=== PATIENT | male | born 1945 | race Caucasian/White ===

== ENCOUNTER 2017-10-22 11:23 | Outpatient (CLI) | payer MEDICARE, OTHER ==
[~2017-10-22] VITALS: Ht 203.2 cm; Wt 130.2 kg
--- NOTE | ~2017-10-22 | HEMODYNAMI ---
PATIENT:PHU SERRANO MEDICAL RECORD: [id number] : 45 LOCATION:DDESTINEY ADMISSION DATE: 10/22/17 Generatedon:10/22/201714:48 Patient name: PHU SERRANO Patient #: [id number] SSN: : Date of study: 10/22/2017 Page: Of Hemodynamic Procedure Report Patient Data Patient Demographics Procedure consent was obtained First Name: PHU Gender: Male Last Name: ZACH : 1945 Middle Initial: W Age: 72 year(s) Patient #: [id number] Race: Unknown Additional ID: [id number] Contact details [address]: [address] [place] [address] ROAD State: [place] City: [place] Zip code: [address] Past Medical History Allergies Allergen Reaction Date Comments Reported Penicillins 10/22/2017 Sulfa drugs 10/22/2017 Admission Admission Data Admission Date: 10/22/2017 Admission Time: 11:23 Procedure Procedure Types Cath Procedure Diagnostic Procedure LHC LHC w/Coronaries Miscellaneous Procedures Moderate Sedation up to 45 minutes Peripheral Cath Diagnostic Procedure Cath Peripheral Sqiwu-Ttbnayw-Igh-Off Procedure Description Procedure Date Procedure Date: 10/22/2017 Procedure Start Time: 14:05 Procedure End Time: 14:47 Procedure Staff Name Function Tushar Yang MD Performing Physician Tammy Julien RT Monitor Karen Arceo RT Scrub Torres Guy RN Nurse Procedure Data Cath Procedure Fluoroscopy Diagnostic fluoroscopy Total fluoroscopy Time: 9.3 time: 9.3 min min Diagnostic fluoroscopy Total fluoroscopy dose: dose: 1497 mGy 1497 mGy Contrast Material Contrast Material Type Amount (ml) Isovue 300 195 Entry Location Entry Primary Successful Side Size Upsize Upsize Entry Closure Succes sful Closure Location (Fr) 1 (Fr) 2 (Fr) Remarks Device Remarks Femoral Right 5 Fr 6 Fr 6 Fr Exoseal artery Long Short Estimated blood loss: 10 ml Diagnostic catheters Device Type Used For End Catheter Placement MULTIPACK JL 4.0 5Fr Left Coronary catheter Angiography DIAGNOSTIC JL 5 5Fr Left Coronary catheter ([id number]) Angiography DIAGNOSTIC JL 5 5Fr Left Coronary catheter ([id number]) Angiography DIAGNOSTIC JL 6 5Fr Left Coronary catheter ([id number]) Angiography MULTIPACK 3DRC 5Fr Right Coronary catheter Angiography MULTIPACK Pigtail 5 Fr LV Angiography catheter MULTIPACK Pigtail 5 Fr Abdominal catheter aortogram with runoff Procedure Complications No complications Procedure Medications Medication Administration Route Dosage 0.9% NaCl I.V. 100 ml/hr Oxygen NC 2 l/min Heparin Flush Bag added to field 2 bags (1000units/500ml NS) Lidocaine 2% added to field 20 Benadryl I.V. 50 mg Versed I.V. 1 mg Fentanyl I.V. 50 mcg Fentanyl I.V. 25 mcg Versed I.V. 0.5 mg Versed I.V. 0.5 mg Fentanyl I.V. 25 mcg Versed I.V. 1 mg Versed I.V. 1 mg Hemodynamics Rest Heart Rate: 80 (bpm) Pressure Samples Time Site Value (mmHg) Purpose Heart Use Rate(bpm) 14:22 LV 111/14,20 Snapshot 71 14:22 AO 108/69(86) Pullback 80 14:22 LV 113/20,21 Pullback 80 Gradients Valve Time Site 1 Site 2 Mean SEP/DFP Peak To Heart Use (mmHg) (sec/min) Peak Rate (mmHg) (bpm) Aortic 14:22 LV AO 5 10 5 80 113/20,21 108/69(86) Calculations Valve P-P Mean Valve Index Valve Source Name Gradient Area Flow (cm2) Aortic 5 5 5 5 Snapshots Pre Cath Intra NCS Post Cath Vital Signs Time Heart Resp SPO2 etCO2 NIBP (mmHg) Rhythm Pain Sedation Rate (ipm) (%) (mmHg) Status Level (bpm) 14:00:51 84 16 97 28.4 153/101(123) NSR 0 (11) 10(A) , No pain 14:05:28 86 18 95 20.2 135/93(116) NSR 0 (11) 10(A) , No pain 14:10:06 84 19 96 29.1 135/86(108) NSR 0 (11) 10(A) , No pain 14:14:45 79 20 96 32.9 118/81(98) NSR 0 (11) 10(A) , No pain 14:19:17 75 16 98 35.1 133/86(106) NSR 0 (11) 9(A) , No pain 14:23:56 81 15 97 32.1 119/79(96) NSR 0 (11) 9(A) , No pain 14:28:32 86 17 99 32.1 129/72(111) NSR 0 (11) 10(A) , No pain 14:33:09 70 21 99 14.9 126/78(110) NSR 0 (11) 10(A) , No pain 14:37:43 72 19 99 19.4 119/81(97) NSR 0 (11) 10(A) , No pain 14:42:18 75 18 99 26.1 117/74(94) NSR 0 (11) 10(A) , No pain 14:46:52 76 15 99 23.9 116/76(99) NSR 0 (11) 10(A) , No pain Medications Time Medication Route Dose Verified Delivered Reason Notes Effe ctiveness by by 13:56:19 0.9% NaCl I.V. 100 Torres Torres Per ml/hr Lorigan Lorigan physician RN RN 13:56:31 Oxygen NC 2 Torres Torres Per l/min Lorigan Lorigan physician RN RN 13:56:44 Heparin Flush added 2 Torres Torres used for Bag to bags Lorigan Lorigan procedure (1000units/500ml field RN RN NS) 13:56:56 Lidocaine 2% added 20ml Torres Torres for local to vial Lorigan Lorigan anesthetic field RN RN 13:57:07 Benadryl I.V. 50 mg Torres Torres for Lorigan Lorigan sedation RN RN 14:06:05 Versed I.V. 1 mg Torres Torres for Lorigan Lorigan sedation RN RN 14:06:19 Fentanyl I.V. 50 Torres Torres for mcg Lorigan Lorigan sedation RN RN 14:07:08 Fentanyl I.V. 25 Torres Torres for mcg Lorigan Lorigan sedation RN RN 14:07:17 Versed I.V. 0.5 Torres Torres for mg Lorigan Lorigan sedation RN RN 14:14:18 Versed I.V. 0.5 Torres Torres for mg Lorigan Lorigan sedation RN RN 14:14:27 Fentanyl I.V. 25 Torres Torres for mcg Lorigan Lorigan sedation RN RN 14:29:39 Versed I.V. 1 mg Torres Torres for Lorigan Yamilexigan sedation RN RN 14:41:48 Versed I.V. 1 mg Torres Torres for Lorigan Lorigan sedation RN [place] [employer] Log Time Note 13:42:20 Torres Guy RN sent for patient. Start room use. 13:42:29 Time tracking: Regular hours 13:42:34 Plan of Care:Hemodynamics will remain stable., Cardiac rhythm will remain stable., Comfort level will be maintained., Respiratory function will remain adequate., Patient/ family verbilizes understanding of procedure., Procedure tolerated without complication., Recovers from procedure without complications.. 13:43:52 Patient received from Pre/Post Procedure Room to CCL 1 Alert and oriented. Tansferred to table in Supine position. 13:43:53 Warm blankets applied, and ebenezer hugger turned on for patient comfort. 13:43:54 Correct patient and procedure confirmed by team. 13:43:55 Signed procedure consent form obtained from patient. 13:43:56 ECG and BP/O2 sat monitors applied to patient. 13:43:57 Full Disclosure recording started 13:56:19 0.9% NaCl 100 ml/hr I.V. was administered by Torres Guy RN; Per physician; 13:56:31 Oxygen 2 l/min NC was administered by Torres Guy RN; Per physician; 13:56:44 Heparin Flush Bag (1000units/500ml NS) 2 bags added to field was administered by Torres Guy RN; used for procedure; 13:56:56 Lidocaine 2% 20ml vial added to field was administered by Torres Guy RN; for local anesthetic; 13:57:07 Benadryl 50 mg I.V. was administered by Torres Guy RN; for sedation; 13:59:58 Vital chart was started 14:00:00 Rhythm: atrial fibrillation 14:00:21 H&P Date Dictated: 10/14/2017 Within 30 days and on chart., H&P Addendum completed by physician on day of procedure. (MUST COMPLETE FOR ALL OUTPATIENTS). 14:00:22 Pre-procedure instructions explained to patient. 14:00:22 Pre-op teaching completed and patient verbalized understanding. 14:00:24 Family in waiting room. 14:00:26 Patient NPO since Midnight. 14:00:35 Patient allergic to Penicillins 14:00:39 Patient allergic to Sulfa drugs 14:01:46 Is the patient allergic to Iodine/contrast media? No. 14:01:48 Is patient on blood thinner?No 14:01:54 Patient diabetic? No. 14:01:57 Previous problem with sedation/anesthesia? No ? 14:01:58 Snore? Yes 14:01:59 Sleep apnea? No 14:02:00 Deviated septum? No 14:02:01 Opens mouth fully? Yes 14:02:01 Sticks out tongue? Yes 14:02:03 Airway obstruction? No ? 14:02:05 Dentures? No ? 14:02:07 Pre procedure: right dorsailis pedis pulse 2+ Normal; easily identifiable; not easily obliterated 14:02:10 Pre procedure: left dorsailis pedis pulse 2+ Normal; easily identifiable; not easily obliterated 14:02:13 Patient pain scale 0/10 ?. 14:02:17 IV patent on arrival in left hand with 0.9% NaCl at [facility]. 14:02:21 Lab results completed and on chart. 14:02:24 Bilateral groins area was prepped with chlora-prep and draped in sterile fashion 14:02:25 Alarms reviewed by R. N. 14:02:25 Sharps counted by scrub and verified by R.N. 14:02:26 Final Timeout: patient, procedure, and site verified with staff and physician. All members of the team are in agreement. 14:02:29 Left groin site verified by team. 14:02:32 Physical assessment completed. ASA score P 2 - A patient with mild systemic disease as per Tushar Yang MD. 14:02:35 Sedation plan: IV Moderate Sedation Medication:Versed, Fentanyl 14:04:05 Baseline sample Acquired. 14:04:09 Zero performed for pressure channel P1 14:04:28 Use device set Femoral Dx 14:04:29 Bag Decanter () opened to sterile field. 14:04:30 ACIST Syringe (43600) opened to sterile field. 14:04:30 Medline Cath Pack ([id number]) opened to sterile field. 14:04:31 SHEATH 5FR [place] (ZVP856) opened to sterile field. 14:04:32 DIAGNOSTIC WIRE .035 260cm J wire (953304) opened to sterile field. 14:04:33 ACIST Hand Control (45524) opened to sterile field. 14:04:34 ACIST Manifold (89725) opened to sterile field. 14:04:35 DIAGNOSTIC Multipack 5Fr catheter set ([id number]) opened to sterile field. 14:04:36 Tegaderm 4 x 4 (1626W) opened to sterile field. 14:04:37 PERCUTANEOUS ENTRY 19GA needle opened to sterile field. 14:05:49 Procedure started. 14:05:54 Local anesthetic to right femoral artery with Lidocaine 2% by Tushar Yang MD.INITIAL ACCESS ONLY 14:06:05 Versed 1 mg I.V. was administered by Torres Guy RN; for sedation; 14:06:06 A 5 Fr sheath was inserted into the Right Femoral artery 14:06:19 Fentanyl 50 mcg I.V. was administered by Torres Guy RN; for sedation; 14:07:08 Fentanyl 25 mcg I.V. was administered by Torres Guy RN; for sedation; 14:07:17 Versed 0.5 mg I.V. was administered by Torres Guy RN; for sedation; 14:08:32 A MULTIPACK JL 4.0 5Fr catheter was advanced over the wire and used for Left Coronary Angiography. removed, unable to cannulate 14:11:07 A DIAGNOSTIC JL 5 5Fr catheter ([id number]) was advanced over the wire and used for Left Coronary Angiography. removed, unable to cannulate 14:12:34 SHEATH 6FR [place] (RSR01) opened to sterile field. 14:13:49 Sheath upsized to a 6 Fr Long. 14:14:18 Versed 0.5 mg I.V. was administered by Torres Guy RN; for sedation; 14:14:27 Fentanyl 25 mcg I.V. was administered by Torres Guy RN; for sedation; 14:15:05 A DIAGNOSTIC JL 5 5Fr catheter ([id number]) was advanced over the wire and used for Left Coronary Angiography. removed, unable to cannulate 14:17:15 A DIAGNOSTIC JL 6 5Fr catheter ([id number]) was advanced over the wire and used for Left Coronary Angiography. 14:20:26 Catheter removed. 14::37 A MULTIPACK 3DRC 5Fr catheter was advanced over the wire and used for Right Coronary Angiography. 14:22:12 Catheter removed. 14:: A MULTIPACK Pigtail 5 Fr catheter was advanced over the wire and used for LV Angiography. 14::37 LV gram done using MAR 14::39 LV hemodynamics recorded. 14::45 Injector settings: Ml/sec: 10, Volume: 20, 14::55 EF : 45 % 14:: Catheter removed. 14::54 Abd Aortogram performed through sheath 14::55 Sheath upsized to a 6 Fr Short. 14:28:09 SHEATH 6FR [place] (NHH490) opened to sterile field. 14::54 A MULTIPACK Pigtail 5 Fr catheter was advanced over the wire and used for Abdominal aortogram with runoff. 14:29:39 Versed 1 mg I.V. was administered by Torres Guy RN; for sedation; 14:40:11 Catheter removed. 14::26 Sheath removed intact; hemostasis achieved with Exoseal to the Right Femoral artery. 14:40:30 Procedure ended.(Physican Out) 14:40:50 Fluoroscopy time 09.30 minutes. 14:40:54 Fluoroscopy dose: 1497 mGy 14:40:54 Flurop Dose total: 1497 14:40:58 Contrast amount:Isovue 300 195ml. 14:41:45 Sharps counted by scrub and verified by R.N. 14:41:48 Versed 1 mg I.V. was administered by Torres Guy RN; for sedation; 14:41:48 Insertion/operative site no bleeding no hematoma. 14:41:52 Post-op/insertion site Right Femoral artery dressed using a 4 x 4 and Tegaderm. 14:41:59 Post right femoral artery:stable, clean and dry 14:42:01 Post Procedure Pulses reassessed and unchanged 14:42:16 Post-procedure physical assessment completed. ASA score P 2 - A patient with mild systemic disease as per Tushar Yang MD. 14:42:18 Post procedure rhythm: unchanged. 14:42:22 Estimated blood loss: 10 ml 14:42:24 Post procedure instruction explained to patient.Patient verbalizes understanding. 14:42:25 Patient needs reinforcement of post procedure teaching. 14:42:36 EXOSEAL 6Fr (EX600) opened to sterile field. 14:42:45 Procedure Complication : No complications 14:42:47 See physician's report for complete and final results. 14:43:15 Procedure type changed to Cath procedure, Diagnostic procedure, LHC, LHC w/Coronaries, Miscellaneous Procedures, Moderate Sedation up to 45 minutes, Peripheral Cath Diagnostic Procedure, Cath Peripheral, Rawqs-Uplryyr-Jon-Off 14:43:51 Terumo ANGLE 260cm glide wire opened to sterile field. 14:44:26 Procedure and supply charges have been captured, reviewed, submitted and are correct. 14:47:49 Vital chart was stopped 14:47:51 Report given to Pre/Post Procedure Room. 14:47:54 Patient transfered to Pre/Post Procedure Room with Stretcher. 14:47:58 Procedure ended. 14:47:58 Full Disclosure recording stopped 14:48:01 End room use (Document Last) Device Usage Item Name Manufacture Quantity Catalog Hospital Part Current Minimal Lot# / Number Charge Number Stock Stock Serial# Code Bag Decanter Microtek 1 [id number] 53038 500042 5 () Medical Inc. ACIST Acist 1 65268 867121 637969 873877 20 Syringe Medical (95004) Systems Inc Medline Cath Cardinal 1 [id number] 050938 61051 074399 5 Pack Health ([id number]) SHEATH 5FR Terumo 1 EQF568 005692 242628 830237 40 [place] (XSF308) DIAGNOSTIC [place] 1 789893 209128 432926 569192 30 WIRE .035 260cm J wire (600926) ACIST Hand Acist 1 09144 313065 862324 222220 5 Control Medical (07407) Systems Inc ACIST Acist 1 89980 027059 308464 681380 5 Manifold Medical (41151) Systems Inc DIAGNOSTIC Cardinal 1 WD9871 307848 59087 208153 30 Multipack Health 5Fr catheter set (ZT0387) Tegaderm 4 x 3M 1 1626W 468671 357684 275317 5 4 (1626W) PERCUTANEOUS Cook Medical 1 J31007 143549 289820 5 ENTRY 19GA needle MULTIPACK JL Cardinal 1 349139 5 4.0 5Fr Health catheter DIAGNOSTIC Cardinal 1 [id number] 299373 636717 014586 5 JL 5 5Fr Health catheter (027352Q) SHEATH 6FR Terumo 1 RSR01 936102 24556 850047 5 Destination (RSR01) DIAGNOSTIC Cardinal 1 [id number] 636117 925542 778677 5 JL 6 5Fr Health catheter (455883C) MULTIPACK Cardinal 1 198813 5 3DRC 5Fr Health catheter MULTIPACK Cardinal 1 718351 5 Pigtail 5 Fr Health catheter SHEATH 6FR Terumo 1 DKW867 841241 811709 802322 40 [place] (OUJ146) EXOSEAL 6Fr Cardinal 1 EX600 991884 650303 115524 10 (EX600) Health Terumo ANGLE Terumo 1 XF6575 629915 749456 737683 5 260cm glide wire Signature Audit Halbur Stage Time Signature Unsigned Intra-Procedure 10/22/2017 Tammy 2:48:16 PM Counts RT(R) Signatures Monitor : Tammy Signature : Counts RT Date : Time : [id number] [place] [address]
[2017-10-22] MEDS ORDERED: K-TAB10 MEQ PO (12:31)
[2017-10-22] MEDS ORDERED: CORDARONE200 MG PO (12:31)
[2017-10-22] MEDS ORDERED: FUROSEMIDE40 MG PO (12:31)
[2017-10-22] MEDS ORDERED: LOPID600 MG PO (12:33)
[2017-10-22] MEDS ORDERED: LEVOTHYROXINE75 MCG PO (12:33)
[2017-10-22] MEDS ORDERED: ZYLOPRIM100 MG PO (12:33)
[2017-10-22] MEDS ORDERED: BYSTOLIC5 MG PO (12:34)
[2017-10-22] MEDS ORDERED: BAYER CHEWABLE81 MG PO (12:34)
[2017-10-22 12:52] LABS: BASOPHILS 0.1 % (0-2); EOSINOPHILS 1.1 % (0-7); HEMATOCRIT 41.6 % (42.0-54.0); HEMOGLOBIN 14.2 g/dL (13.5-17.5); IMMATURE GRANULOCYTES 0.3 % (0-5); LYMPHOCYTES 21.7 % (15-50); MCH 33.2 pg (26.0-34.0); MCHC 34.1 g/dL (31.0-37.0); MCV 97.2 fL (80.0-100.0); MEAN PLATELET VOLUME 8.7 fL (7.4-10.4); MONOCYTES 9.6 % (2-11); NEUTROPHILS 67.2 % (40-80); PLATELET COUNT 261 10x3/uL (130-400); RBC 4.28 10x6/uL (4.20-6.10); RDW 13.1 % (11.5-14.5)
[2017-10-22 13:06] LABS: ANION GAP 10.8 mmol/L (8-16); CALCIUM 9.1 mg/dL (8.5-10.1); CREATININE - SERUM 1.3 mg/dL (0.6-1.3); POTASSIUM - SERUM 3.8 mmol/L (3.5-5.1)
--- NOTE | 2017-10-22 15:15 | NUR ---
2L NC, NO RESP DISTRESS. RIGHT GROIN 6F EXOSEAL CDI, NO BLEEDING OR HEMATOMA NOTED. NO C/O PAIN OR NAUSEA. VSS. FAMILY AT BEDSIDE, CALL LIGHT WITHIN REACH.
--- NOTE | 2017-10-22 15:45 | NUR ---
RIGHT GROIN 6F EXOSEAL CDI, NO BLEEDING OR HEMATOMA NOTED. 2L NC, NO RESP DISTRESS. NO C/O PAIN OR NAUSEA. DRINK GIVEN. VSS. WILL CONTINUE TO MONITOR.
--- NOTE | 2017-10-22 16:00 | NUR ---
RESTING QUIETLY WITH EYES CLOSED. VSS. NO C/O AT THIS TIME. RIGHT GROIN 6F EXOSEAL CDI, NO BLEEDING OR HEMATOMA NOTED. AT BEDSIDE, CALL LIGHT WITHIN REACH.
--- NOTE | 2017-10-22 16:30 | NUR ---
HOB ELEVATED 30 DEGREES. RIGHT GROIN 6F EXOSEAL CDI, NO BLEEDING NOTED.
--- NOTE | 2017-10-22 16:45 | NUR ---
LEFT FA PIV D/C'D WITH CATHETER INTACT, BAND AID TO SITE. UP TO BEDSIDE TO GET DRESSED.
--- NOTE | 2017-10-22 16:50 | NUR ---
DISCHARGE INSTRUCTIONS GIVEN, VERBALIZED UNDERSTANDING.
--- NOTE | 2017-10-22 17:00 | NUR ---
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 LEFT FACILITY WITH FAMILY AND ALL PERSONAL BELONGINGS.
--- NOTE | 2017-10-23 13:26 | OP ---
PATIENT NAME: PHU SERRANO MEDICAL RECORD: [id number] :45 LOCATION:D.CAT ADMISSION DATE: SURGEON: PELON STEPHENSON MD DATE OF OPERATION: 10/22/2017 PROCEDURE: Left heart catheterization, selective coronary angiography, right femoral approach. The case was marked by marked tortuosity and difficulty engaging the coronaries, had to use long sheath to engage the coronaries. FINDINGS: Left ventriculography in 30-degree MAR view shows global hypokinesis, marked reduced EF 40% to 45%. CORONARY ANATOMY: LEFT MAIN: Left main is free of disease. LAD: Has luminal irregularities, but no flow obstructing disease. CIRCUMFLEX: Totally occluded distally and fills late via bridging and left to left collaterals. RIGHT CORONARY ARTERY: The right coronary artery is a dominant artery, a large vessel by far and is free of disease. Catheters pulled to the level of the aorta, runoff was performed, again marked tortuous vessels. Left SFA shows fairly discrete stenosis of about 90%. Right iliacs are markedly tortuous and this shows distal stenosis of several areas 90%. Given the marked tortuosity, probably not amenable to around the horn and would have to do antegrade stick. This will be scheduled with the right left first at a later date. TRANSINT:[id number] Voice Confirmation ID: [id number] DOCUMENT ID: [id number] PELON STEPHENSON MD at 1326 CC: [id number] DICTATION DATE: 10/22/17 1448 ASSISTANT HEAD CASHIER: 10/22/17 1816 DEP CLI 10/22/17 [address] [place] [address]
== END 2017-10-22 17:00 | disposition home or self-care (01) ==
LOC: D.CATH 11:23
PROVIDERS: Internal Medicine Interventional Cardiology
DX: I70.219 Atherosclerosis of native arteries of extremities with intermittent claudication, unspecified extremity (principal); I25.10 Atherosclerotic heart disease of native coronary artery without angina pectoris; I10 Essential (primary) hypertension; I49.9 Cardiac arrhythmia, unspecified; I48.91 Unspecified atrial fibrillation; Z01.812 Encounter for preprocedural laboratory examination

== ENCOUNTER 2017-11-06 11:05 | Outpatient (CLI) | payer MEDICARE, OTHER ==
[~2017-11-06] VITALS: Ht 203.2 cm; Wt 130.5 kg
--- NOTE | ~2017-11-06 | HP ---
PATIENT: PHU SERRANO MEDICAL RECORD: [id number] ACCOUNT: [id number] LOCATION:ANTHONY : 45 ADMISSION DATE: 11/06/17 HISTORY AND PHYSICAL EXAMINATION HISTORY OF PRESENT ILLNESS: A 72-year-old gentleman with a known history of coronary artery disease as well as a history of atrial fibrillation and peripheral vascular disease. He is being brought to the angiography for intervention of the right SFA. PAST MEDICAL HISTORY: 1. History of hypertension. 2. Hyperlipidemia. 3. Obstructive pulmonary disease. PHYSICAL EXAMINATION: GENERAL: Pleasant gentleman, appears stated age. HEENT: Normocephalic and atraumatic. NECK: No bruits. HEART: Regular. LUNGS: Lung segal are clear. ABDOMEN: Soft, nontender. EXTREMITIES: Pulses are decreased. There is no edema. IMPRESSION: Known history of disease in the SFA. PLAN: Intervention today. TRANSINT:[id number] Voice Confirmation ID: [id number] DOCUMENT ID: [id number] PELON STEPHENSON MD at 1210 CC: [id number] DICTATION DATE: 11/06/17 1440 SHIPYARD PAINTER: 11/06/17 1501 DEP CLI 11/06/17 [facility] [address] [place] [address]
--- NOTE | ~2017-11-06 | OP ---
PATIENT NAME: PHU SERRANO MEDICAL RECORD: [id number] :45 LOCATION:D.CAT ADMISSION DATE: SURGEON: PELON STEPHENSON MD DATE OF OPERATION: 11/06/2017 PROCEDURE: PTCA stent right SFA. DESCRIPTION OF PROCEDURE: The right iliac was cannulated in anterograde fashion. We were able to traverse the long 80% to 90% stenosed area with a Glidewire itself. Next, pre-deployment used was a 6.0 x 100 mm balloon used pre-deployment. Next the balloon withdrawn, showed multiple small areas of dissection and significant residual. Next, a 100 x 7 SMART stent was then deployed in usual fashion. Finally, post-deployment, we used a 7 x 100 mm balloon up to 6 atmospheres. This showed excellent resolution of the long diffuse 80% to 90% stenosis and no significant residual. FemoStop was placed due to inability to place ExoSeal. Angiomax was used during this case. Plavix was loaded in the lab. TRANSINT:[id number] Voice Confirmation ID: [id number] DOCUMENT ID: [id number] PELON STEPHENSON MD at 1210 CC: [id number] DICTATION DATE: 11/06/17 1445 MIXER WET POUR: 11/06/17 1516 [facility] CLI 11/06/17 [facility] [address] [place] [address]
--- NOTE | ~2017-11-06 | HEMODYNAMI ---
PATIENT:PHU SERRANO MEDICAL RECORD: [id number] : 45 LOCATION:[facility] ADMISSION DATE: 11/06/17 Generatedon:11/06/201714:51 Patient name: PHU SERRANO Patient #: [id number] SSN: : Date of study: 11/06/2017 Page: Of Hemodynamic Procedure Report Patient Data Patient Demographics Procedure consent was obtained First Name: PHU Gender: Male Last Name: ZACH : 1945 Middle Initial: W Age: 72 year(s) Patient #: [id number] Race: Additional ID: [id number] Contact details [address]: [address] [place] [address] ROAD State: [place] City: [place] Zip code: [address] Past Medical History Allergies Allergen Reaction Date Comments Reported Penicillins 10/22/2017 Sulfa drugs 10/22/2017 Other allergy 11/06/2017 Penicillin, Sulfa Admission Admission Data Admission Date: 11/06/2017 Admission Time: 11:05 Procedure Procedure Types Cath Procedure Miscellaneous Procedures Moderate Sedation up to 45 minutes Peripheral vascular Intervention Stent Stent-Fem/Popw/plasty Procedure Description Procedure Date Procedure Date: 11/06/2017 Procedure Start Time: 13:59 Procedure End Time: 14:47 Procedure Staff Name Function Tushar Yang MD Performing Physician Maryann Fallon RT Monitor Karen Arceo RT Scrub Jeanne Lal RN Nurse Tatyana García RN Front Desk Monitor Procedure Data Cath Procedure Entry Location Entry Primary Successful Side Size Upsize Upsize Entry Closure Succes sful Closure Location (Fr) 1 (Fr) 2 (Fr) Remarks Device Remarks Femoral Right 6 Fr Exoseal artery Short Estimated blood loss: 5 ml Procedure Complications No complications Procedure Medications Medication Administration Route Dosage 0.9% NaCl I.V. 100 ml/hr Oxygen NC 2 l/min Lidocaine 2% added to field 20 Heparin Flush Bag added to field 2 bags (1000units/500ml NS) Fentanyl I.V. 100 mcg Versed I.V. 2 mg Versed I.V. 1 mg Fentanyl I.V. 50 mcg Versed I.V. 1 mg Fentanyl I.V. 50 mcg Angiomax (bolus) I.V. 19.5 ml Angiomax Drip I.V. drip 45.9 ml/hr (250mg/50ml NS) (Standard) Versed I.V. 2 mg Fentanyl I.V. 100 mcg Versed I.V. 1 mg Versed I.V. 1 mg Plavix 600 mg Hemodynamics Rest Heart Rate: 94 (bpm) Snapshots Pre Cath Intra NCS Post Cath Vital Signs Time Heart Resp SPO2 NIBP (mmHg) Rhythm Pain Sedation Rate (ipm) (%) Status Level (bpm) 13:54:18 95 16 94 142/86(115) NSR 0 (11) 10(A) , No pain 13:59:33 91 17 98 143/103(114) NSR 0 (11) 10(A) , No pain 14:03:43 95 18 96 104/79(91) NSR 0 (11) 10(A) , No pain 14:07:47 81 19 98 115/78(91) NSR 0 (11) 9(A) , No pain 14:11:53 80 16 96 115/85(96) NSR 0 (11) 9(A) , No pain 14:16:03 73 16 96 119/70(98) NSR 0 (11) 10(A) , No pain 14:20:09 76 17 100 130/90(109) NSR 0 (11) 10(A) , No pain 14:24:23 79 16 99 121/76(97) NSR 0 (11) 10(A) , No pain 14:28:28 77 16 94 107/80(90) NSR 0 (11) 9(A) , No pain 14:32:32 97 15 99 123/77(101) NSR 0 (11) 10(A) , No pain 14:36:30 70 18 96 115/84(101) NSR 0 (11) 10(A) , No pain 14:40:39 89 18 133/74(90) NSR 0 (11) 10(A) , No pain 14:44:52 101 12 137/85(110) NSR 0 (11) 10(A) , No pain Medications Time Medication Route Dose Verified Delivered Reason Notes Effectiveness by by 13:33:35 0.9% NaCl I.V. 100ml/hr Tushar Byrnefany used for [facility] Lal RN procedure 13:33:49 Oxygen NC 2 l/min Tushar Byrnefany Per [facility] Lal RN physician 13:34:07 Lidocaine 2% added 20ml vial Tushar Finley used for to [facility] procedure field MD ROSALES 13:34:18 Heparin Flush added 2 bags Tushar Finley used for Bag to [facility] procedure (1000units/500ml field MD ROSALES NS) 13:56:50 Fentanyl I.V. 100 mcg Tushar Jeanne for sedation [facility] Lal RN, MD 13:57:00 Versed I.V. 2 mg Tushar Jeanne for sedation [facility] Lal RN, MD 13:59:08 Versed I.V. 1 mg Tushar Jeanne for sedation [facility] RN, MD 13:59:15 Fentanyl I.V. 50 mcg Tushar Jeanne for sedation [facility] RN, MD 14:01:50 Versed I.V. 1 mg Tushar Jeanne for sedation [facility] RN, MD 14:01:57 Fentanyl I.V. 50 mcg Tushar Jeanne for sedation [facility] RN, MD 14:18:04 Angiomax (bolus) I.V. 19.5ml Tushar Jeanne for [facility] Lal RN antiplatelet MD therapy 14:18:26 Angiomax Drip I.V. 45.9ml/hr Tushar Jeanne for (250mg/50ml NS) drip [facility] Lal RN antiplatelet (Standard) MD therapy 14:19:39 Versed I.V. 2 mg Tushar Jeanne for sedation [facility] Lal RN, MD 14:30:59 Fentanyl I.V. 100 mcg Tushar Jeanne for sedation [facility] Lal RN, MD 14:32:36 Versed I.V. 1 mg Tushar Jeanne for sedation [facility] Lal RN, MD 14:33:45 Versed I.V. 1 mg Tushar Jeanne for sedation [facility] Lal RN, MD 14:38:34 Plavix 600 mg Tushar Jeanne for [facility] Lal RN antiplatelet MD therapy Procedure Log Time Note 13:16:42 Informed consent obtained and on chart 13:16:46 Diagnostic Cath Status : Elective 13:21:45 Tatyana García RN sent for patient. Start room use. 13:30:28 Time tracking: Regular hours 13:30:31 Plan of Care:Hemodynamics will remain stable., Cardiac rhythm will remain stable., Comfort level will be maintained., Respiratory function will remain adequate., Patient/ family verbilizes understanding of procedure., Procedure tolerated without complication., Recovers from procedure without complications.. 13:33:35 0.9% NaCl 100ml/hr I.V. was administered by Jeanne Lal RN; used for procedure; 13:33:49 Oxygen 2 l/min NC was administered by Jeanne Lal RN; Per physician; 13:34:04 Patient received from Pre/Post Procedure Room to CCL 2 Alert and oriented. Tansferred to table in Supine position. 13:34:05 Warm blankets applied, and ebenezer hugger turned on for patient comfort. 13:34:06 Correct patient and procedure confirmed by team. 13:34:07 Lidocaine 2% 20ml vial added to field was administered by Tushar Yang MD; used for procedure; 13:34:07 ECG and BP/O2 sat monitors applied to patient. 13:34:18 Heparin Flush Bag (1000units/500ml NS) 2 bags added to field was administered by Tushar Yang MD; used for procedure; 13:53:15 Vital chart was started 13:53:17 Baseline sample Acquired. 13:53:20 Rhythm: atrial fibrillation 13:53:22 Full Disclosure recording started 13:53:26 H&P Date Dictated: 11/06/2017 New H&P dictated by physician.. 13:53:27 Pre-procedure instructions explained to patient. 13:53:28 Pre-op teaching completed and patient verbalized understanding. 13:53:29 Family in waiting room. 13:53:30 Patient NPO since Midnight. 13:53:50 Patient allergic to Other allergyPenicillin, Sulfa 13:53:56 Is the patient allergic to Iodine/contrast media? No. 13:53:57 Was the patient premedicated? No 13:53:59 Is patient on blood thinner?Yes 13:54:24 Patient on zarelto, has not taken for 2 weeks prior 13:54:30 Patient diabetic? No. 13:54:50 Snore? Yes 13:54:51 Sleep apnea? No 13:54:52 Deviated septum? No 13:54:53 Opens mouth fully? Yes 13:54:54 Sticks out tongue? Yes 13:54:55 Airway obstruction? No ? 13:55:04 Dentures? No ? 13:55:11 Pre procedure: right dorsailis pedis pulse Doppler 13:55:14 Pre procedure: left dorsailis pedis pulse Doppler 13:55:27 Patient pain scale 0/10 ?. 13:55:31 IV patent on arrival in left forearm with 0.9% NaCl at [facility]. 13:55:50 Lab results completed and on chart. 13:55:54 Right groin area was prepped with chlora-prep and draped in sterile fashion 13:55:55 Alarms reviewed by R. N. 13:55:56 Sharps counted by scrub and verified by R.N. 13:55:59 Physician arrived 13:55:59 --------ALL STOP TIME OUT------ 13:56:01 Final Timeout: patient, procedure, and site verified with staff and physician. All members of the team are in agreement. 13:56:03 Right groin site verified by team. 13:56:05 Physical assessment completed. ASA score P 2 - A patient with mild systemic disease as per Tushar Yang MD. 13:56:08 Sedation plan: IV Moderate Sedation Medication:Versed, Fentanyl 13:56:16 Procedure started. 13:56:50 Fentanyl 100 mcg I.V. was administered by Jeanne Lal RN; for sedation; 13:56:54 Use device set Femoral Dx 13:56:55 ACIST Syringe (85595) opened to sterile field. 13:56:56 Bag Decanter () opened to sterile field. 13:56:57 Medline Cath Pack ([id number]) opened to sterile field. 13:57:00 Versed 2 mg I.V. was administered by Jeanne Lal RN; for sedation; 13:57:00 DIAGNOSTIC WIRE .035 260cm J wire ([id number]) opened to sterile field. 13:57:03 ACIST Hand Control (47915) opened to sterile field. 13:57:03 ACIST Manifold (38908) opened to sterile field. 13:57:10 Tegaderm 4 x 4 (1626W) opened to sterile field. 13:57:18 SHEATH 6FR Hamel (GTV461) opened to sterile field. 13:59:00 Local anesthetic to right femoral artery with Lidocaine 2% by Tushar Yang MD.INITIAL ACCESS ONLY 13:59:08 Versed 1 mg I.V. was administered by Jeanne Lal RN; for sedation; 13:59:15 Fentanyl 50 mcg I.V. was administered by Jeanne Lal RN; for sedation; 14:01:50 Versed 1 mg I.V. was administered by Jeanne Lal RN; for sedation; 14:01:57 Fentanyl 50 mcg I.V. was administered by Jeanne Lal RN; for sedation; 14:03:35 A 6 Fr Short sheath was inserted into the Right Femoral artery 14:07:37 Right leg runoff performed. 14:08:30 GLIDE WIRE ANGLE 260cm (OL0583) opened to sterile field. 14:09:21 glide wire advanced. 14:10:24 Wire advanced across lesion. 14:14:28 The SABER 6.0 X 150 X 150 balloon ([id number]) was advanced and then removed because it was opened but not used 14:18:04 Angiomax (bolus) 19.5ml I.V. was administered by Jeanne Lal RN; for antiplatelet therapy; 14:18:26 Angiomax Drip (250mg/50ml NS) (Standard) 45.9ml/hr I.V. drip was administered by Jeanne Lal RN; for antiplatelet therapy; 14:18:49 Inflation number: 1 A 6 x 10 x 80powerflex was prepped and advanced across the Mid Superficial Femoral, Right, then inflated to 12 KIERRA for 0:30 (min:sec). 14:19:39 Versed 2 mg I.V. was administered by Jeanne Lal RN; for sedation; 14:23:03 Balloon removed over the wire. 14:27:22 SMART 7 X 100 X 120 stent ([id number]) was deployed across Mid Superficial Femoral, Right . 14:27:42 Stent catheter was removed intact over wire. 14:30:59 Fentanyl 100 mcg I.V. was administered by Jeanne Lal RN; for sedation; 14:32:36 Versed 1 mg I.V. was administered by Jeanne Lal RN; for sedation; 14:32:54 Inflation number: 2 A POWERFLEX PRO 7.0 x 100 x 135cm balloon ([id number]) was prepped and advanced across the Mid Superficial Femoral, Right, then inflated to 8 KIERRA for 0:30 (min:sec). 14:33:45 Versed 1 mg I.V. was administered by Jeanne Lal RN; for sedation; 14:34:00 Balloon removed over the wire. 14:34:09 Wire removed. 14:34:10 Guide catheter removed. 14:34:18 EXOSEAL 6Fr (EX600) opened to sterile field. 14:36:11 Sheath removed intact; hemostasis achieved with Exoseal to the Right Femoral artery. 14:36:14 Procedure ended.(Physican Out) 14:38:34 Plavix 600 mg was administered by Jeanne Lal RN; for antiplatelet therapy; 14:45:17 Femstop placed over the right femoral artery at 175 mmHg. Hemostasis achieved. 14:45:26 Post-op/insertion site Right Femoral artery dressed using a 4 x 4 and Tegaderm. 14:45:30 Post right femoral artery:stable 14:45:47 Post Procedure Pulses reassessed and unchanged 14:45:49 Post procedure rhythm: unchanged. 14:45:52 Estimated blood loss: 5 ml 14:45:53 Post procedure instruction explained to patient.Patient verbalizes understanding. 14:45:53 Patient needs reinforcement of post procedure teaching. 14:46:45 Procedure type changed to Cath procedure, Miscellaneous Procedures, Moderate Sedation up to 45 minutes, Peripheral vascular Intervention, Stent, Stent-Fem/Popw/plasty 14:46:46 Procedure and supply charges have been captured, reviewed, submitted and are correct. 14:46:51 Procedure Complication : No complications 14:46:57 Vital chart was stopped 14:46:58 See physician's report for complete and final results. 14:47:04 Report given to Pre/Post Procedure Room. 14:47:06 Patient transfered to Pre/Post Procedure Room with Stretcher. 14:47:08 Procedure ended. 14:47:08 Full Disclosure recording stopped 14:47:15 ACC-PCI Only Patient was given prescriptions, or instructed by Tushar Yang MD to start/continue the following medications upon discharge: Plavix 14:47:17 End room use (Document Last) Intervention Summary Intervention Notes Time ActionType Lesion and Equipment Action# Pressure Duration Attributes Used 14:14:28 Discard SABER 6.0 X Balloon 150 X 150 balloon ([id number]) 14:18:49 Inflate Mid 6 x 10 x 1 12 00:30 balloon Superficial 80powerflex Femoral, Right 14:27:22 Deploy self Mid SMART 7 X 1 expanding Superficial 100 X 120 stent Femoral, stent Right ([id number]) 14:32:54 Inflate Mid POWERFLEX 2 8 00:30 balloon Superficial PRO 7.0 x Femoral, 100 x 135cm Right balloon ([id number]) Device Usage Item Name Manufacture Quantity Catalog Hospital Part Current Minimal L ot# / Number Charge Number Stock Stock Serial# Code ACIST Acist 1 [id number] 983456 962527 360790 20 Syringe Medical (31323) Systems Inc Bag Microtek 1 2001S 866659 96501 194182 5 Decanter [employer] () Medline Cardinal 1 [id number] 128876 32584 339804 5 Cath Pack Health ([id number]) DIAGNOSTIC [facility] 1 923352 496448 368463 076300 30 WIRE .035 260cm J wire (358854) ACIST Hand Acist 1 81010 267843 552722 347217 5 Control Medical (27646) Systems Inc ACIST Acist 1 26832 818023 457419 818383 5 Manifold Medical (79784) Systems Inc Tegaderm 4 3M 1 1626W 416507 925324 348075 5 x 4 (1626W) SHEATH 6FR Terumo 1 DOY017 362311 940275 039360 40 Hamel (ABX164) GLIDE WIRE Terumo 1 VV1849 123646 847349 244924 5 ANGLE 260cm (FK5368) SABER 6.0 X Cardinal 1 [id number] 844294 891472 5 150 X 150 Health balloon ([id number]) 6 x 10 x Unknown 1 0 0 80powerflex SMART 7 X Cardinal 1 [id number] 827847 570471 0 1 [id number] 100 X 120 Health stent ([id number]) POWERFLEX Cardinal 1 [id number] 604062 468833 711499 5 PRO 7.0 x Health 100 x 135cm balloon ([id number]) EXOSEAL 6Fr Cardinal 1 EX600 988350 503877 726152 10 (EX600) Health Signature Audit [place] Stage Time Signature Unsigned Intra-Procedure 11/06/2017 Maryann Fallon 2:51:01 PM RT(R) Signatures Monitor : Maryann Fallon RT Signature : Date : Time : [facility] [address] [place] [address]
[~2017-11-06 11:05] MED LIST: BAYER CHEWABLE81 MG PO; BYSTOLIC5 MG PO; CORDARONE200 MG PO; FUROSEMIDE40 MG PO; K-TAB10 MEQ PO; LEVOTHYROXINE75 MCG PO; LOPID600 MG PO; ZYLOPRIM100 MG PO
[2017-11-06 11:31] VITALS: BP 113/65; Ht 203.2 cm; Wt 130.5 kg
[2017-11-06 11:38] LABS: BASOPHILS 0.3 % (0-2); EOSINOPHILS 3.3 % (0-7); HEMATOCRIT 41.1 % (42.0-54.0); IMMATURE GRANULOCYTES 0.4 % (0-5); MCH 33.1 pg (26.0-34.0); MCHC 34.1 g/dL (31.0-37.0); MCV 97.2 fL (80.0-100.0); MEAN PLATELET VOLUME 8.8 fL (7.4-10.4); MONOCYTES 9.3 % (2-11); NEUTROPHILS 59.7 % (40-80); PLATELET COUNT 210 10x3/uL (130-400); RBC 4.23 10x6/uL (4.20-6.10); RDW 13.5 % (11.5-14.5); WBC 7.4 10x3/uL (4.8-10.8)
[2017-11-06 12:02] LABS: ANION GAP 14.1 mmol/L (8-16); CALCIUM 8.8 mg/dL (8.5-10.1); CARBON DIOXIDE 27.7 mmol/L (21.0-32.0); CREATININE - SERUM 1.4 mg/dL (0.6-1.3); POTASSIUM - SERUM 3.8 mmol/L (3.5-5.1)
[2017-11-06] MEDS ORDERED: PLAVIX75 MG PO (14:59)
== END 2017-11-06 18:55 | disposition home or self-care (01) ==
LOC: D.CATH 11:05
PROVIDERS: Internal Medicine Interventional Cardiology
DX: I25.10 Atherosclerotic heart disease of native coronary artery without angina pectoris (principal); I48.91 Unspecified atrial fibrillation; I70.219 Atherosclerosis of native arteries of extremities with intermittent claudication, unspecified extremity; I10 Essential (primary) hypertension; E78.5 Hyperlipidemia, unspecified; J44.9 Chronic obstructive pulmonary disease, unspecified; Z01.812 Encounter for preprocedural laboratory examination

== ENCOUNTER → 2018-09-09 18:26 | Outpatient (CLI) | payer MEDICARE ==
[2017-11-06 11:31] VITALS: BMI 31.5
[~2018-09-09 18:26] MED LIST changes: +PLAVIX75 MG PO
== END | disposition home or self-care (01) ==
LOC: D.LABREF 18:26
DX: R31.9 Hematuria, unspecified (principal)

== ENCOUNTER 2019-04-06 11:16 | Outpatient (CLI) | payer MEDICARE | END 2019-04-06 14:35 | disposition home or self-care (01) | LOC: D.CATH 11:16 | DX: I48.91 Unspecified atrial fibrillation (principal) ==

== ENCOUNTER 2020-06-04 23:39 | Inpatient (IN) | payer OTHER ==
[~2020-06-04] VITALS: Ht 203.2 cm; Wt 145.5 kg
[~2020-06-04 23:39] MED LIST changes: +ELIQUIS2.5 MG PO
[2020-06-05] VITALS (7 sets, daily range): BP systolic 91–152; BP diastolic 45–71; Ht 203.2 cm; Wt 145.5 kg
--- NOTE | 2020-06-05 | NUR ---
PT GIVEN WATER TO DRINK. PT STATES THAT HE FEELS MUCH BETTER.
[2020-06-05 00:21] LABS: BASOPHILS 0.1 % (0-2); EOSINOPHILS 0.1 % (0-7); HEMATOCRIT 45.3 % (42.0-54.0); HEMOGLOBIN 15.1 g/dL (13.5-17.5); IMMATURE GRANULOCYTES 0.7 % (0-5); LYMPHOCYTES 6.5 % (15-50); MCH 32.3 pg (26.0-34.0); MCHC 33.3 g/dL (31.0-37.0); MONOCYTES 7.7 % (2-11); NEUTROPHILS 84.9 % (40-80); PLATELET COUNT 149 10x3/uL (130-400); RBC 4.67 10x6/uL (4.20-6.10); RDW 13.7 % (11.5-14.5); WBC 11.1 10x3/uL (4.8-10.8)
[2020-06-05 00:21] LABS: BILIRUBIN NEGATIVE (NEGATIVE); GLUCOSE NEGATIVE (NEGATIVE); KETONE NEGATIVE (NEGATIVE); NITRITE NEGATIVE (NEGATIVE); UROBILINOGEN NORMAL (NORMAL)
[2020-06-05 00:22] LABS: CALC OSMOLALITY 263 mosm/kg (275-300); CALCIUM 9.7 mg/dL (8.5-10.1); CARBON DIOXIDE 27.4 mmol/L (21.0-32.0); CHLORIDE - SERUM 94 mmol/L (98-107); CREATININE - SERUM 1.5 mg/dL (0.6-1.3); GLUCOSE 111 mg/dL (74-106); POTASSIUM - SERUM 3.5 mmol/L (3.5-5.1); SODIUM 131 mmol/L (136-145); UREA NITROGEN 13 mg/dL (7-18); eGFR NON AFRICAN AMERICAN 48 mL/min (90-120)
[2020-06-05 00:23] LABS: APTT 31.4 SECONDS (22.8-39.4); INR 1.09 (0.85-1.17)
[2020-06-05 00:48] LABS: ALBUMIN 3.6 g/dL (3.4-5.0); ALKALINE PHOSPHATASE 162 U/L (30-120); ALT (SGPT) 20 U/L (10-68); BILIRUBIN - TOTAL 0.72 mg/dL (0.2-1.3); CKMB 0.3 U/L (0.0-3.6); CREATINE KINASE 79 UL (21-232); LIPASE 73 U/L (73-393); MAGNESIUM - SERUM 1.6 mg/dL (1.8-2.4); PRO BNP 912 pg/mL (0-450); TROPONIN-I < 0.017 ng/mL (0.000-0.060)
[2020-06-05 01:10] LABS: C-REACTIVE PROTEIN 5.2 mg/dL (0.0-0.9)
[2020-06-05 01:13] LABS: THYROID STIMULATING HORMONE 7.01 uIU/mL (0.36-3.74)
--- NOTE | 2020-06-05 01:15 | NUR ---
CODE SEPSIS INITIATED PER DR. QUINTANILLA.
--- NOTE | 2020-06-05 01:37 | NUR ---
REPORT RECEIVED, PT CARE ASSUMED. AWAITING PT'S ARRIVAL TO ROOM [id number].
--- NOTE | 2020-06-05 01:43 | NUR ---
ROCEPHIN 1G STARTED 0104 FINISHED 0134 50ML INFUSED ZITHROMAX 500MG STARTED 0131 INFUSING CONTINUED TO FLOOR @ 250ML/HR LR 3000ML BOLUS STARTED 0128 INFUSING CONTINUED TO FLOOR @ 999ML/HR NS W/20MEQ KCL STARTED 0115 INFUSING CONTINUED TO FLOOR @ 60ML/HR
[2020-06-05 09:28] LABS: BASOPHILS 0.1 % (0-2); EOSINOPHILS 0 % (0-7); HEMATOCRIT 39.8 % (42.0-54.0); HEMOGLOBIN 13.2 g/dL (13.5-17.5); IMMATURE GRANULOCYTES 1.4 % (0-5); LYMPHOCYTES 3.4 % (15-50); MCH 32.5 pg (26.0-34.0); MCHC 33.2 g/dL (31.0-37.0); MEAN PLATELET VOLUME 9.1 fL (7.4-10.4); MONOCYTES 5.1 % (2-11); PLATELET COUNT 132 10x3/uL (130-400); RBC 4.06 10x6/uL (4.20-6.10); RDW 13.7 % (11.5-14.5); WBC 12.7 10x3/uL (4.8-10.8)
[2020-06-05 09:55] LABS: ANION GAP 13.7 mmol/L (8-16); CALCIUM 8.6 mg/dL (8.5-10.1); CARBON DIOXIDE 28.4 mmol/L (21.0-32.0); CREATININE - SERUM 1.7 mg/dL (0.6-1.3)
[2020-06-05 09:59] LABS: POTASSIUM - SERUM 4.1 mmol/L (3.5-5.1)
[2020-06-05] MEDS ORDERED: AVIDOXY100 MG PO (17:07)
[2020-06-05] MEDS ORDERED: AMOXICILLIN875 MG PO (17:10)
--- NOTE | 2020-06-05 18:12 | NUR ---
PROVIDED VERBAL AND WRITTEN DISCHARGE TEACHING TO PT WHO VERBALIZED UNDERSTANDING REGARDING TEACHING. D/C LT AND RT FA IV BOTH WITH CATHETER TIPS INTACT. WHEELED PT TO ER ENTRANCE WITH ALL BELONGINGS, NAD NOTED.
== END 2020-06-05 18:14 | disposition home or self-care (01) | DRG 194 ==
LOC: D.ER 23:39 → D.M2 06-05 01:03
PROVIDERS: Emergency Medicine; Family Medicine; ADMIT Emergency Medicine; ATTEND Emergency Medicine
DX: J18.9 Pneumonia, unspecified organism (principal); J90 Pleural effusion, not elsewhere classified; L03.116 Cellulitis of left lower limb; E87.1 Hypo-osmolality and hyponatremia; N17.9 Acute kidney failure, unspecified; I12.9 Hypertensive chronic kidney disease with stage 1 through stage 4 chronic kidney disease, or unspecified chronic kidney disease; N18.9 Chronic kidney disease, unspecified; E03.9 Hypothyroidism, unspecified